=== PATIENT | female | born 1955 | race Caucasian/White ===

== ENCOUNTER 2016-05-13 23:22 | Emergency (ER) | payer OTHER, MEDICAID ==
[2016-05-13 23:28] VITALS: TEMP 97.9; O2SAT 96
--- NOTE | 2016-05-14 00:28 | EDPHY ---
H & P Stated Complaint: PAIN WITH LIFTING ARMS X2 WEEKS, PAIN TO BILAT LEGS HPI/ROS: CHIEF COMPLAINT: Difficulty lifting arms HISTORY OF PRESENT ILLNESS: patient complains of 1-2 weeks of difficulty lifting her arms. There is significant pain in the shoulder girdle. No weakness of the arms very painful to do so. Has difficulty lifting her arms above her head. No trauma or injury. No bony tenderness. No weakness of the pelvic girdle. No weakness distally. No fevers chills. No trauma or injury. Has not seen anyone yet for this. No alleviating factors this at home. Worse when attempting to abduct the shoulders. No other associated complaints or modifying factors. REVIEW OF SYSTEMS: Ten systems reviewed and are negative unless otherwise noted in the HPI EXAMINATION General Appearance: Alert, no distress Head: normocephalic, atraumatic Eyes: Pupils equal and round, no conjunctival pallor or injection ENT, Mouth: Mucous membranes moist knee. Uvula midline. No lesions. Neck: Normal inspection, supple, non-tender Respiratory: Lungs are clear to auscultation Cardiovascular: Regular rate and rhythm Gastrointestinal: Abdomen is soft and nontender Back: non-tender, no bony abnormalities Neurological: A&O, nonfocal, Steady gait. Strength is symmetric 5/5 in all limbs. Sensory intact. Skin: Warm and dry, no rash Extremities: Range of motion intact, but significant pain to the bilateral deltoids with abduction and flexion of the shoulder. No tenderness to palpation at any level below the shoulder. Range of motion of the lower extremities intact. Neurovascular intact distal to her shoulder pain with brisk cap refill in all fingers and toes Psychiatric: Mood and affect normal DIFFERENTIAL DIAGNOSES: Including but not limited to myositis, muscular strain, weakness, chronic pain , malingering MDM: Shoulder pain with no weakness. There is no pelvic girdle weakness. Laboratory studies reveal elevated CRP but no elevated CK. ESR is normal.Creatinine is normal. Electrolytes are normal. Suspect this is poly myalgia. No evidence of polymyositis. She will be given 60 mg of prednisone here and discharge home with continued steroid therapy over the next few days. She is to follow up with primary care physician for definitive care. Patient is comfortable with this and discharged home in stable condition. She has asked multiple times for pain medication And I have declined. SUPERVISION: This patient was independently evaluated without the aide of supervising physician. Source: Patient Exam Limitations: No limitations - Personal History Current Tetanus/Diphtheria Vaccine: Yes Current Tetanus Diphtheria and Acellular Pertussis (TDAP): Yes Tetanus Vaccine Date: 2012 - Medical/Surgical History Hx Asthma: No Hx Chronic Respiratory Disease: No Hx Diabetes: No Hx Cardiac Disease: No Hx Renal Disease: No Hx Cirrhosis: No Hx Alcoholism: Yes Hx HIV/AIDS: No Hx Splenectomy or Spleen Trauma: No Other PMH: medical anxiety, depression. surgery bilateral knee surgery, tubal ligation. ETOH abuse, pancreatitis, hypernatremia. PIN IN l WRIST - Social History Smoking Status: Former smoker Constitutional: Initial Vital Signs Temperature (C) 97.9 F 05/13/16 23:25 Heart Rate 106 H 05/13/16 23:25 Respiratory Rate 18 05/13/16 23:25 Blood Pressure 128/84 H 05/13/16 23:25 O2 Sat (%) 96 05/13/16 23:25 O2 Delivery Mode Room Air Allergies/Adverse Reactions: No Known Allergies Allergy (Verified 05/13/16 23:28) Home Medications: Medication Instructions Recorded Zolpidem Tartrate [Ambien 5MG (*)] 10 mg PO HS PRN 12/16/15 buPROPion SR [Wellbutrin 150mg SR 150 mg PO BID 12/16/15 (*)] Acetaminophen [Tylenol 325mg (*)] 650 mg PO Q4 PRN #0 tab 12/17/15 predniSONE 60 mg PO DAILY #12 tab 05/14/16 Medical Decision Making - Data Points Laboratory Results: Laboratory Results 05/14/16 00:45 05/14/16 00:45 05/14/16 00:45 WBC 7.63 10^3/uL (3.80-9.50) RBC 4.56 10^6/uL (4.18-5.33) Hgb 13.4 g/dL (12.6-16.3) Hct 39.9 % (38.0-47.0) MCV 87.5 fL (81.5-99.8) MCH 29.4 pg (27.9-34.1) MCHC 33.6 g/dL (32.4-36.7) RDW 13.2 % (11.5-15.2) Plt Count 412 H 10^3/uL (150-400) MPV 8.5 L fL (8.7-11.7) Neut % (Auto) 55.3 % (39.3-74.2) Lymph % (Auto) 34.7 % (15.0-45.0) [place] % (Auto) 5.1 % (4.5-13.0) Eos % (Auto) 3.7 % (0.6-7.6) Baso % (Auto) 0.8 % (0.3-1.7) Nucleat RBC Rel Count 0.0 % (0.0-0.2) Absolute Neuts (auto) 4.22 10^3/uL (1.70-6.50) Absolute Lymphs (auto) 2.65 10^3/uL (1.00-3.00) Absolute Monos (auto) 0.39 10^3/uL (0.30-0.80) Absolute Eos (auto) 0.28 10^3/uL (0.03-0.40) Absolute Basos (auto) 0.06 10^3/uL (0.02-0.10) Absolute Nucleated RBC 0.00 10^3/uL (0-0.01) Immature Gran % 0.4 % (0.0-1.1) Immature Gran # 0.03 10^3/uL (0.00-0.10) ESR 17 MM/HR (0-30) Sodium 151 H mEq/L (134-144) Potassium 4.3 mEq/L (3.5-5.2) Chloride 114 H mEq/L (97-110) Carbon Dioxide 22 mEq/l (22-31) Anion Gap 15 mEq/L (8-16) BUN 20 mg/dL (7-23) Creatinine 0.8 mg/dL (0.6-1.0) Estimated GFR > 60 Glucose 103 H mg/dL (70-100) Calcium 9.4 mg/dL (8.5-10.4) Magnesium 1.9 mg/dL (1.6-2.3) Creatine Kinase 63 IU/L (0-156) C-Reactive Protein 28.8 H mg/L (<10.0) Departure - Departure Disposition: Home, Routine, Self-Care Clinical Impression: Muscular pain, Polymyalgia Condition: Good Instructions: Polymyalgia Rheumatica (ED) Additional Instructions: Follow-up with primary care physician for further workup. Recommend discussion for autoimmune workup. Return for any new weakness of the upper extremities or worsening pain. Referrals: NONE *PRIMARY CARE P,. [Primary Care Provider] - As per Instructions [facility] [Outside] - As per Instructions Prescriptions: predniSONE 60 mg PO DAILY #12 tab
[2016-05-14 01:11] LABS: % IMMATURE GRANULYOCYTES 0.4 % (0.0-1.1); ABSOLUTE IMMATURE GRANULOCYTES 0.03 10^3/uL (0.00-0.10); ADD DIFF? NO; ADD MORPH? NO; ADD SCAN? NO; ATYPICAL LYMPHOCYTE FLAG 10 (0-99); FRAGMENT RBC FLAG 0 (0-99); HEMATOCRIT 39.9 % (38.0-47.0); HEMOGLOBIN 13.4 g/dL (12.6-16.3); LEFT SHIFT FLG 0 (0-99); LIPEMIA HEMOLYSIS FLAG 80 (0-99); MEAN CELL HEMOGLOBIN 29.4 pg (27.9-34.1); MEAN CELL HEMOGLOBIN CONCENTR. 33.6 g/dL (32.4-36.7); MEAN CELL VOLUME 87.5 fL (81.5-99.8); MEAN PLATELET VOLUME 8.5 fL (8.7-11.7); PLATELET CLUMPS FLAG 10 (0-99); PLATELET COUNT 412 10^3/uL (150-400); RED BLOOD CELL COUNT 4.56 10^6/uL (4.18-5.33); RED CELL DISTRIBUTION WIDTH 13.2 % (11.5-15.2)
[2016-05-14 01:25] LABS: SEDIMENTATION RATE 17 MM/HR (0-30)
[2016-05-14 01:29] LABS: ANION GAP 15 mEq/L (8-16); C-REACTIVE PROTEIN 28.8 mg/L (<10.0); CALCIUM 9.4 mg/dL (8.5-10.4); CARBON DIOXIDE 22 mEq/l (22-31); CHLORIDE 114 mEq/L (97-110); CREATININE 0.8 mg/dL (0.6-1.0); GLOMERULAR FILTRATION RATE > 60; GLUCOSE 103 mg/dL (70-100); MAGNESIUM 1.9 mg/dL (1.6-2.3); POTASSIUM 4.3 mEq/L (3.5-5.2); SODIUM 151 mEq/L (134-144)
[2016-05-14] MEDS ORDERED: predniSONE 20 MG TAB PO ONE (01:39)
[2016-05-14] MEDS ORDERED: predniSONE 20 MG TAB ONE (01:39)
[2016-05-14 01:50] VITALS: BP 121/86; PULSE 71; RESP 16
== END 2016-05-14 01:50 | disposition home or self-care (01) ==
DX: M79.1 Myalgia (principal); M35.3 Polymyalgia rheumatica; Z87.891 Personal history of nicotine dependence

== ENCOUNTER 2016-06-17 06:55 | Emergency (ER) | payer OTHER, MEDICAID ==
[2016-06-17 07:02] VITALS: BP 136/88; PULSE 91; RESP 16; TEMP 98.4; O2SAT 94
--- NOTE | 2016-06-17 07:13 | EDPHY ---
HPI/HX/ROS/PE/MDM Narrative: CHIEF COMPLAINT: Elbow and knee pain HPI: The patient is a 60 y/o female, well-known to this department with 9 ED visits in the last year, complaining of right knee and right elbow pain secondary to a fall this morning. She was walking to the bus stop when she slipped on the snow and landed on her right side. She says she has a history of injuries to her right knee and has an upcoming surgery scheduled. She denies striking her head or losing consciousness. No weakness, paresthesias, or other injuries. REVIEW OF SYSTEMS: Aside from elements discussed in the HPI, a comprehensive 10-point review of systems was reviewed and is negative. PMH: anxiety, depression, bilateral knee surgeries, pancreatitis SOCIAL HISTORY: alcohol abuse Prior medical records reviewed including ED visits 05/13/16 and 03/13/16. PHYSICAL EXAM: General:Patient is alert, in no acute distress. ENT:Eyes are normal to inspection. ENT inspection normal. Neck: Normal inspection. Full range of motion. Respiratory:No respiratory distress. Breath sounds normal bilaterally. Cardiovascular: Regular rate and rhythm. Strong peripheral pulses. Normal cap refill. Abdomen:The abdomen is nontender to palpation. There are no peritoneal signs. There are normal bowel sounds. Back: Normal to inspection. No tenderness to palpation. Skin: Normal color. No rash. Warm and dry. Extremities: Normal appearance. Full range of motion. Mild diffuse tenderness over right elbow and right knee. Neuro: Oriented x3. Normal motor function. Normal sensory function. ED Course: Study: Right knee x-ray Indication: pain, trauma Results: Knee x-ray was obtained. The results of the study are effusion, likely chronic. The study was read by the radiologist, Dr. Russell. I viewed the images myself on the PACS system. Study: Right elbow x-ray Indication: pain, trauma Results: Elbow x-ray was obtained. The results of the study are Negative. No acute fracture or effusion. The study was read by the radiologist, Dr. Russell. I viewed the images myself on the PACS system. MDM: This patient presents with minor extremity injuries after a slip on the ice. She has been seen numerous times in the ED for pain related issues and is asking for narcotics. She is refusing ibuprofen or tylenol. She walked out of the department after being denied narcotics, with XR reads still pending. I have low suspicion for serious trauma. I have high suspicion for narcotic- seeking behavior. General Initial Vital Signs: Initial Vital Signs Temperature (C) 36.9 C 06/17/16 06:58 Heart Rate 91 06/17/16 06:58 Respiratory Rate 16 06/17/16 06:58 Blood Pressure 136/88 H 06/17/16 06:58 O2 Sat (%) 94 06/17/16 06:58 O2 Delivery Mode Room Air Allergies/Adverse Reactions: No Known Allergies Allergy (Verified 06/17/16 07:02) Home Medications: Medication Instructions Recorded Zolpidem Tartrate [Ambien 5MG (*)] 10 mg PO HS PRN 12/16/15 buPROPion SR [Wellbutrin 150mg SR 150 mg PO BID 12/16/15 (*)] Acetaminophen [Tylenol 325mg (*)] 650 mg PO Q4 PRN #0 tab 12/17/15 Departure - Departure Disposition: Home, Routine, Self-Care Clinical Impression: Contusion of knee, right Qualifiers: Encounter type: initial encounter Qualified Code(s): S80.01XA - Contusion of right knee, initial encounter Contusion of elbow, right Qualifiers: Encounter type: initial encounter Qualified Code(s): S50.01XA - Contusion of right elbow, initial encounter Condition: Good Instructions: Contusion in Adults (ED) Additional Instructions: 1. Apply ice to sore areas. Expect to feel more sore tomorrow. 2. Use ibuprofen and Tylenol as directed on the packaging if needed for pain. 3. Follow up with your primary care provider for symptoms not improved over the next week. Referrals: Sydni Pierson DO [Primary Care Provider] - As per Instructions Report Scribed for: Torrey Bryant Report Scribed by: Tatiana Gutierres Date of Report: 06/17/16 Time of Report: 07:13 Physician Review and Approval Statement: Portions of this note were transcribed by an ED scribe. I personally performed the history, physical exam, and medical decision making; and confirm the accuracy of the information in the transcribed note.
== END 2016-06-17 08:42 | disposition home or self-care (01) ==
DX: S80.01XA Contusion of right knee, initial encounter (principal); S50.01XA Contusion of right elbow, initial encounter; W00.0XXA Fall on same level due to ice and snow, initial encounter; Y92.521 Bus station as the place of occurrence of the external cause; Y99.8 Other external cause status; Y93.01 Activity, walking, marching and hiking

== ENCOUNTER 2016-07-09 08:17 | Emergency (ER) | payer OTHER, MEDICAID ==
[2016-07-09 08:45] VITALS: BP 136/90; PULSE 88; RESP 16; TEMP 97.2; O2SAT 95
--- NOTE | 2016-07-09 09:01 | UCPHY ---
H & P Time Seen by Provider: 07/09/16 08:47 Patient Type: Established HPI/ROS: This patient presents with a chief complaint of right knee injury which occurred yesterday evening. She says that she fell directly on it but has diffuse knee pain involving the posterior aspect as well as the medial and lateral aspects. She denies any twisting component. This patient is scheduled for arthroscopic knee surgery at the end of the month. She has had multiple knee problems in the past and says that the menisci bilaterally are non-existent. Smoking Status: Former smoker Physical Exam: This is a well-developed well-nourished female who is in no acute distress. She is alert lucid. Examination of the knee reveals some mild swelling over the medial aspect of the joint. There is tenderness diffusely about the knee involving both the medial and lateral aspects as well as the anterior and posterior ones. There is no laxity of the collatera ligaments that I can detect but the patient is regarding the knee. Constitutional: Initial Vital Signs Temperature (C) 36.2 C 07/09/16 08:40 Heart Rate 88 07/09/16 08:40 Respiratory Rate 16 07/09/16 08:40 Blood Pressure 136/90 H 07/09/16 08:40 O2 Sat (%) 95 07/09/16 08:40 O2 Delivery Mode Room Air Allergies/Adverse Reactions: No Known Allergies Allergy (Verified 07/09/16 08:38) Home Medications: Medication Instructions Recorded Zolpidem Tartrate [Ambien 5MG (*)] 10 mg PO HS PRN 12/16/15 buPROPion SR [Wellbutrin 150mg SR 150 mg PO BID 12/16/15 (*)] Acetaminophen [Tylenol 325mg (*)] 650 mg PO Q4 PRN #0 tab 12/17/15 Oxycontin 07/01/16 Hydrocodone/APAP 5/325 [[place] 5 mg PO Q4-6PRN PRN #6 tab 07/09/16 5/325 (*)] Medical Decision Making ED Course/Re-evaluation: I do not feel that x-rays are indicated based on the amount of swelling present and the lack of any other objective findings especially given that she is scheduled for arthroscopy in the near future. Differential Diagnosis: Mechanism of this injury makes me think that contusion is the most likely diagnosis. There is no evidence of a significant ligamentous injury or fracture. Departure - Departure Disposition: Home, Routine, Self-Care Clinical Impression: Knee injury Qualifiers: Encounter type: initial encounter Laterality: right Qualified Code(s): S89.91XA - Unspecified injury of right lower leg, initial encounter Condition: Good Instructions: Swollen Knee Joint (ED) Additional Instructions: Keep your appointment for your arthroscopic surgery as previously scheduled. Limit your activity based on the amount of pain you're having. Apply ice to the area of injury for 20 minutes every 2 hours for 3 days following your injury. After 3 days (72 hours) it is safe to apply heat frequently throughout the day and I would recommend you're doing so. However if ice feels better it is okay to do this. Elevate the area of the injury as much as possible for the next 2 or 3 days or longer if you have a serious injury. If you have been told that it is safe to use the injured extremity do so in a limited fashion for the first 2-3 days. Afterwards left pain be your guide. Adult Pain & Fever Control: We recommend Acetaminophen (Tylenol) and Ibuprofen (Motrin, Advil) for pain and fever control. When fever is high or pain severe, both drugs can be used at the same time, but at different intervals. Please note the time differences. Your dose is: Acetaminophen [650]mg every 4 to 6 hours ibuprofen [600]mg every [6] hours with food OR naproxen Sodium (Aleve) [440]mg every 12 hours. Note: do not take Acetaminophen with Hydrocodone (Vicodin, Lortab) or Oxycodone (Percocet). These medications also contain Acetaminophen. No more than 3000 mg of Acetaminophen should be taken in 24 hours (for an adult) . The maximal dose of ibuprofen that it is safe in a 24-hour period is 2400 mg. You may take 400 mg every 4 hours, 600 mg every 6 hours or 800 mg every 8 hours safely. Prescriptions: Hydrocodone/APAP 5/325 [[place] 5/325 (*)] 5 mg PO Q4-6PRN PRN #6 tab PRN Reason: pain - PQRS PQRS Measurement: Not applicable
== END 2016-07-09 09:10 | disposition home or self-care (01) ==
LOC: CED 08:17
DX: S89.91XA Unspecified injury of right lower leg, initial encounter (principal); M25.461 Effusion, right knee; W19.XXXA Unspecified fall, initial encounter
CPT/HCPCS: 99213-PO; G0463-PO

== ENCOUNTER 2016-08-13 19:32 | Emergency (ER) | payer OTHER, MEDICAID ==
[2016-08-13] MEDS ORDERED: LORazepam 1 MG TAB PO ONE ×2 (19:39→21:03)
[2016-08-13 19:55] VITALS: RESP 16; TEMP 97.9
[2016-08-13] MEDS ORDERED: LORazepam 1 MG TAB ONE (20:53)
--- NOTE | 2016-08-13 21:09 | EDPHY ---
H & P Stated Complaint: ETOH, found down, unable to ambulate, combative during transport HPI/ROS: Chief complaint: Alcohol intoxication History of present illness: 60-year-old female brought to the emergency department by EMS for suspected alcohol intoxication. Patient was found passed outside a restaurant. EMS was called and she was transported to the hospital. My evaluation patient is uncooperative. She does admit to drinking alcohol. She will not answer further questions. Review of systems: Unable to obtain as patient is not cooperative - Personal History Current Tetanus/Diphtheria Vaccine: Unsure Current Tetanus Diphtheria and Acellular Pertussis (TDAP): Unsure Tetanus Vaccine Date: 2012 - Medical/Surgical History Hx Asthma: No Hx Chronic Respiratory Disease: No Hx Diabetes: No Hx Cardiac Disease: No Hx Renal Disease: No Hx Cirrhosis: No Hx Alcoholism: Yes Hx HIV/AIDS: No Hx Splenectomy or Spleen Trauma: No Other PMH: [facility] [place]. Fibromyalgia, depression, Chronic pain, Tubal ligation, alcoholism - Social History Smoking Status: Former smoker - Physical Exam Exam: General Appearance: Alert, nontoxic, odor of alcohol on breath Eyes: PERRLA ENT: No hemotympanum, no eubanks sign, no raccoon eyes Respiratory: Lungs clear to auscultation bilaterally Cardiac: Regular rate and rhythm. Gastrointestinal: Bowel sounds normal. Abdomen is soft, nondistended, no apparent tenderness. Neurological: Alert. Moving around without difficulty. Skin: Head-to-toe examination does not reveal lesions consistent with trauma Musculoskeletal: Head is normocephalic, atraumatic. No apparent tenderness on palpation of the spine. No crepitus, bony deformity or step-off. Chest wall intact palpation. Patient moving all extremities without difficulty. Ambulating without difficulty. Constitutional: Initial Vital Signs Temperature (C) 36.6 C 08/13/16 19:35 Heart Rate 82 08/13/16 19:35 Respiratory Rate 16 08/13/16 19:35 Blood Pressure 185/102 H 08/13/16 19:35 O2 Sat (%) 92 08/13/16 19:35 O2 Delivery Mode Room Air Allergies/Adverse Reactions: No Known Allergies Allergy (Verified 07/09/16 08:38) Home Medications: Medication Instructions Recorded Zolpidem Tartrate [Ambien 5MG (*)] 10 mg PO HS PRN 12/16/15 buPROPion SR [Wellbutrin 150mg SR 150 mg PO BID 12/16/15 (*)] Acetaminophen [Tylenol 325mg (*)] 650 mg PO Q4 PRN #0 tab 12/17/15 Oxycontin 07/01/16 Hydrocodone/APAP 5/325 [[place] 5 mg PO Q4-6PRN PRN #6 tab 07/09/16 5/325 (*)] Medical Decision Making ED Course/Re-evaluation: Patient seen under the supervision of my primary supervising physician Dr. Kassandra Odonnell. Patient presents to the emergency department after being essentially found passed out. On presentation patient is nontoxic. Vital signs are stable. There is a strong odor of alcohol on her breath. Physical exam is benign. Police have placed her on an [facility] cold. She is discharged to the [facility] after a period of observation without further problems in the emergency room. Differential Diagnosis: Included but not limited to alcohol intoxication, polysubstance abuse, psychiatric disorders - Data Points Medications Given: Discontinued Medications Lorazepam (Ativan) 1 mg PO EDNOW ONE Stop: 08/13/16 19:40 Last Admin: 08/13/16 19:45 Dose: 1 mg Lorazepam (Ativan) 1 mg PO EDNOW ONE Stop: 08/13/16 21:04 Last Admin: 08/13/16 21:03 Dose: 1 mg Departure - Departure Disposition: Home, Routine, Self-Care Clinical Impression: Alcoholic intoxication Qualifiers: Complication of substance-induced condition: uncomplicated Qualified Code(s): F10.120 - Alcohol abuse with intoxication, uncomplicated Condition: Good Instructions: Alcohol Intoxication (ED) Additional Instructions: Follow up with a primary care doctor for recheck If symptoms worsen or new symptoms develop return to the emergency department Referrals: [facility] [Outside] - As per Instructions [facility] [Outside] - As per Instructions Patient,NotPresent [Primary Care Provider] - As per Instructions
[2016-08-13 22:13] VITALS: BP 151/84; PULSE 81; O2SAT 95
== END 2016-08-13 22:00 | disposition home or self-care (01) ==
LOC: EDUNIT#
DX: F10.120 Alcohol abuse with intoxication, uncomplicated (principal); Z87.891 Personal history of nicotine dependence

== ENCOUNTER 2016-09-04 02:05 | Emergency (ER) | payer MEDICAID, OTHER ==
--- NOTE | 2016-09-04 02:11 | EDPHY ---
H & P HPI/ROS: HPI CHIEF COMPLAINT: Alcohol intoxication with head strike HISTORY OF PRESENT ILLNESS: This patient very pleasant 52-year-old female she has significant past medical history for alcoholism, fibromyalgia, depression, chronic pain presents emergency room by EMS with police escort after the make contact with her in the [facility] lot where she was found without any pants on. She had to climb up on a tractor trailer base of it fell backwards off with head strike. No LOC. This was witnessed by police. Patient is intoxicated with alcohol. She tells me she drank vodka this evening. Upon arrival here she is alert and oriented GCS 15 she does have slight slur her speech and smells of alcohol. She does admit to being intoxicated. Past Medical History: Chronic pain, depression, fibromyalgia, alcoholism Past Surgical History: Tubal ligation Social History: Daily alcohol use, denies tobacco or illicit drugs, lives locally in [place] Family History: Noncontributory ROS REVIEW OF SYSTEMS: A comprehensive 10 point review of systems is otherwise negative aside from elements mentioned in the history of present illness. Exam Constitutional intoxicated alcohol, pleasant, triage nursing summary reviewed, vital signs reviewed, awake/alert. Eyes normal conjunctivae and sclera, EOMI, PERRLA. HENT normal inspection, atraumatic, moist mucus membranes, no epistaxis, neck supple/ no meningismus, no raccoon eyes. Respiratory clear to auscultation bilaterally, normal breath sounds, no respiratory distress, no wheezing. Cardiovascular rate normal, regular rhythm, no murmur, no edema, distal pulses normal. Gastrointestinal soft, non-tender, no rebound, no guarding, normal bowel sounds, no distension, no pulsatile mass. Genitourinary no CVA tenderness. Musculoskeletal no midline vertebral tenderness, full range of motion, no calf swelling, no tenderness of extremities, no meningismus, good pulses, neurovascularly intact. Skin pink, warm, & dry, no rash, skin atraumatic. Neurologic awake, alert and oriented x 3, AAOx3, moves all 4 extremities equally, motor intact, sensory intact, CN II-XII intact, normal cerebellar, normal vision, slurring of the speech Psychiatric normal mood/affect. Heme/Lymph/Immune no lymphadenopathy. Differential Diagnosis: Includes but is not limited to in a particular order acute alcohol intoxication, closed head injury, subdural hemorrhage, epidural hemorrhage, traumatic subarachnoid Medical Decision Making: Plan for this patient breath alcohol and CT head without contrast for trauma given head strike against the pavement while intoxicated alcohol after climbing up on [address]. Fell approximately 2-3 feet. Re-evaluation: CT scan of the head without IV contrast The results of the study are negative for acute traumatic injury. The study was read by Dr. Franco. I viewed the images myself on the PACS system. [id number]: Patient is now clinically sober but still smells of alcohol. Stable gait. No ataxia. We have provided pain meds for her as she did not have any pants. She is on are cold to be dispositioned to the [facility] with police. Head scan was unremarkable for trauma. Final diagnosis acute alcohol intoxication. Source: Patient, Police, EMS - Personal History Tetanus Vaccine Date: 2012 - Medical/Surgical History Hx Asthma: No Hx Chronic Respiratory Disease: No Hx Diabetes: No Hx Cardiac Disease: No Hx Renal Disease: No Hx Cirrhosis: No Hx Alcoholism: Yes Hx HIV/AIDS: No Hx Splenectomy or Spleen Trauma: No Other PMH: P[facility]. Fibromyalgia, depression, Chronic pain, Tubal ligation, alcoholism - Social History Smoking Status: Former smoker Constitutional: Initial Vital Signs Temperature (C) 36.6 C 09/04/16 02:17 Heart Rate 98 09/04/16 02:17 Respiratory Rate 20 09/04/16 02:17 Blood Pressure 169/112 H 09/04/16 02:17 O2 Sat (%) 96 09/04/16 02:17 O2 Delivery Mode Room Air Allergies/Adverse Reactions: No Known Allergies Allergy (Verified 07/09/16 08:38) Home Medications: Medication Instructions Recorded Zolpidem Tartrate [Ambien 5MG (*)] 10 mg PO HS PRN 12/16/15 buPROPion SR [Wellbutrin 150mg SR 150 mg PO BID 12/16/15 (*)] Acetaminophen [Tylenol 325mg (*)] 650 mg PO Q4 PRN #0 tab 12/17/15 Oxycontin 07/01/16 Hydrocodone/APAP 5/325 [[place] 5 mg PO Q4-6PRN PRN #6 tab 07/09/16 5/325 (*)] Departure - Departure Disposition: Home, Routine, Self-Care Clinical Impression: Alcohol intoxication Qualifiers: Complication of substance-induced condition: uncomplicated Qualified Code(s): F10.120 - Alcohol abuse with intoxication, uncomplicated Condition: Good Instructions: Alcohol Intoxication (ED) Referrals: Patient,NotPresent [Primary Care Provider] - As per Instructions
[2016-09-04 02:20] VITALS: TEMP 97.9; O2SAT 96
[2016-09-04] MEDS ORDERED: CHLORDIAZEPOXIDE 25MG PREPK#6 BTL TAKEHOME ONE ×2 (02:57→02:58)
[2016-09-04 03:02] VITALS: BP 168/90; PULSE 88; RESP 22
== END 2016-09-04 03:02 | disposition home or self-care (01) ==
LOC: EDUNIT#
DX: F10.120 Alcohol abuse with intoxication, uncomplicated (principal); Z87.891 Personal history of nicotine dependence

== ENCOUNTER 2016-10-25 21:09 | Emergency (ER) | payer MEDICAID ==
[2016-10-25 21:20] VITALS: RESP 16; TEMP 97.9
[2016-10-25 21:22] LABS: % IMMATURE GRANULYOCYTES 0.3 % (0.0-1.1); ABSOLUTE IMMATURE GRANULOCYTES 0.02 10^3/uL (0.00-0.10); ADD DIFF? NO; ADD MORPH? NO; ADD SCAN? NO; ATYPICAL LYMPHOCYTE FLAG 20 (0-99); FRAGMENT RBC FLAG 0 (0-99); HEMATOCRIT 40.9 % (38.0-47.0); HEMOGLOBIN 13.3 g/dL (12.6-16.3); LEFT SHIFT FLG 0 (0-99); LIPEMIA HEMOLYSIS FLAG 80 (0-99); MEAN CELL HEMOGLOBIN CONCENTR. 32.5 g/dL (32.4-36.7); MEAN CELL VOLUME 89.3 fL (81.5-99.8); MEAN PLATELET VOLUME 9.3 fL (8.7-11.7); PLATELET CLUMPS FLAG 10 (0-99); PLATELET COUNT 301 10^3/uL (150-400); RED BLOOD CELL COUNT 4.58 10^6/uL (4.18-5.33); RED CELL DISTRIBUTION WIDTH 14.1 % (11.5-15.2)
--- NOTE | 2016-10-25 21:32 | CPEKG ---
Heart Rate: 94 RR Interval: 638 P-R Interval: 176 QRSD Interval: 108 QT Interval: 392 QTC Interval: 491 P [place]: 65 QRS [place]: 46 T Wave [place]: 19 EKG Severity - BORDERLINE ECG - EKG Impression: SINUS RHYTHM EKG Impression: BORDERLINE PROLONGED QT INTERVAL Electronically Signed By: Cleopatra Vergara 26-Oct-2016 00:40:39
[2016-10-25 21:46] LABS: ANION GAP 18 mEq/L (8-16); CALCIUM 9.5 mg/dL (8.5-10.4); CARBON DIOXIDE 18 mEq/l (22-31); CHLORIDE 114 mEq/L (97-110); CREATININE 0.9 mg/dL (0.6-1.0); GLOMERULAR FILTRATION RATE > 60; GLUCOSE 93 mg/dL (70-100); POTASSIUM 3.5 mEq/L (3.5-5.2); SODIUM 150 mEq/L (134-144)
[2016-10-25 22:08] LABS: ETHANOL SERUM 328 mg/dL (0-10)
--- NOTE | 2016-10-25 22:27 | EDPHY ---
H & P Stated Complaint: syncope vs sz, found down ams - Personal History Current Tetanus Diphtheria and Acellular Pertussis (TDAP): Yes Tetanus Vaccine Date: 2012 - Medical/Surgical History Hx Asthma: No Hx Chronic Respiratory Disease: No Hx Diabetes: No Hx Cardiac Disease: No Hx Renal Disease: No Hx Cirrhosis: No Hx Alcoholism: Yes Hx HIV/AIDS: No Hx Splenectomy or Spleen Trauma: No Other PMH: USHA Urban. Fibromyalgia, depression, Chronic pain, Tubal ligation, alcoholism - Social History Smoking Status: Former smoker HPI/ROS: Chief complaint: Found down History of present illness: 61-year-old female brought to the emergency department by EMS after being found laying in a driveway. Patient has been mostly nonverbal with EMS, occasionally answering questions. She does admit to drinking alcohol. No stated complaints. On my evaluation patient states she feels fine. She states she has no complaints. She will not further elaborate on events of this evening. Review of systems: Patient will not answer further questions. (Cruz Brooks) - Physical Exam Exam: General Appearance: Alert, nontoxic Eyes: PERRLA ENT: No hemotympanum, no eubanks sign, no raccoon eyes Respiratory: Lungs clear to auscultation bilaterally Cardiac: Regular rate and rhythm. Gastrointestinal: Bowel sounds normal. Abdomen is soft, nondistended, nontender. Neurological: Alert. Cranial nerves 2-12 grossly intact. Strength and sensation intact and symmetrical. Patient ambulating on her own. Skin: A head-to-toe examination does not reveal lesions consistent with acute trauma. Musculoskeletal: No apparent tenderness on palpation of the head, no crepitus or bony deformity. No apparent tenderness on palpation of the spine without crepitus or bony deformity. Chest wall is intact palpation without crepitus or subcutaneous air. Patient moving all extremities without difficulty. (Cruz Brooks) Constitutional: Initial Vital Signs Temperature (C) 36.6 C 10/25/16 21:09 Heart Rate 97 10/25/16 21:09 Respiratory Rate 16 10/25/16 21:09 Blood Pressure 123/96 H 10/25/16 21:09 O2 Sat (%) 93 10/25/16 21:09 O2 Delivery Mode Room Air Allergies/Adverse Reactions: No Known Allergies Allergy (Verified 07/09/16 08:38) Home Medications: Medication Instructions Recorded Zolpidem Tartrate [Ambien 5MG (*)] 10 mg PO HS PRN 12/16/15 buPROPion SR [Wellbutrin 150mg SR 150 mg PO BID 12/16/15 (*)] Acetaminophen [Tylenol 325mg (*)] 650 mg PO Q4 PRN #0 tab 12/17/15 Oxycontin 07/01/16 Hydrocodone/APAP 5/325 [[place] 5 mg PO Q4-6PRN PRN #6 tab 07/09/16 5/325 (*)] Medical Decision Making - Diagnostics Imaging Results: Imaging Impressions Cervical Spine CT 10/25/16 21:12 Impression: Normal. CT cervical spine without contrast. History: Trauma. Pain. Fall. Technique: 1.5 mm helical images were obtained the cervical spine without contrast. Multiplanar reformation was performed. Radiation dose reduction technique was utilized. Findings: No evidence for acute fracture or subluxation. No evidence for prevertebral soft tissue swelling. Multilevel degenerative changes seen in the cervical spine. Levels of more severe neural foraminal encroachment or on the right at C5-C6 and C6-C7. Impression: No evidence for acute fracture. Multilevel degenerative disk and degenerative joint disease cervical spine more severe at C5-C6 and C6-C7. Results called and discussed with BEE Hilario at 10/25/2016 22:08. Head CT 10/25/16 21:12 Impression: Normal. CT cervical spine without contrast. History: Trauma. Pain. Fall. Technique: 1.5 mm helical images were obtained the cervical spine without contrast. Multiplanar reformation was performed. Radiation dose reduction technique was utilized. Findings: No evidence for acute fracture or subluxation. No evidence for prevertebral soft tissue swelling. Multilevel degenerative changes seen in the cervical spine. Levels of more severe neural foraminal encroachment or on the right at C5-C6 and C6-C7. Impression: No evidence for acute fracture. Multilevel degenerative disk and degenerative joint disease cervical spine more severe at C5-C6 and C6-C7. Results called and discussed with BEE Hilario at 10/25/2016 22:08. ED Course/Re-evaluation: Patient seen in conjunction with my secondary supervising physician Dr. Cleopatra Vergara. Patient is brought to the emergency department by EMS after being found down. On my evaluation she will converse with me a little. She states she feels fine. She has become quite belligerent while in the emergency room wanting to leave. She is ambulating on her own. Baseline blood studies show her to be significantly intoxicated. CT scan of the head and neck negative. EKG reviewed by Dr. Vergara. Of note she had a positive test with a tracley elevated quantitative HCG. She is postmenopausal. It is not clear as to the cause of this finding. We have discussed the importance of following up with a primary care doctor or OBGYN to further evaluate this finding. Further written instructions have been provided. Further we will leave a note with case management to contact her tomorrow hopefully when she is sober to further discuss this finding and the importance of following up on it. Return precautions are given. (Cruz Brooks) Differential Diagnosis: Included but not limited to alcohol intoxication, polysubstance abuse, hypovolemic state, infectious pathology, seizure activity, intracranial injury, spinal cord injury (Cruz Brooks) Other Provider: The patient was evaluated and managed by the Physician Monorail Hooker/ Nurse Practitioner. [I discussed the patient's presentation and course with the midlevel provider with them and agree with the evaluation.] My co-signature indicates that I have reviewed this chart and I agree with the findings and plan of care as documented. I am the secondary supervising physician. I did have a discussion with the patient regarding the abnormal lab test of a positive test. She has a beta qualitative HCG of 7.9. She tells me that she has not had a period for 5 years and that she has not been sexually active for 2 years. I did inform the patient of the abnormal beta HCG which was rechecked twice. She understands the importance that she needs to follow up. We have also asked case management to become involved in her care. Personal at the [facility] was also made aware of her need for follow-up. Patient was noted to be dehydrated with the elevated sodium and chloride. She was drinking water while in the emergency department. (Cleopatra Vergara) - Data Points Laboratory Results: Laboratory Results 10/25/16 21:14 10/25/16 21:14 10/25/16 10/25/16 10/25/16 21:14 21:14 21:14 WBC RBC Hgb Hct MCV MCH MCHC RDW Plt Count MPV Neut % (Auto) Lymph % (Auto) [place] % (Auto) Eos % (Auto) Baso % (Auto) Nucleat RBC Rel Count Absolute Neuts (auto) Absolute Lymphs (auto) Absolute Monos (auto) Absolute Eos (auto) Absolute Basos (auto) Absolute Nucleated RBC Immature Gran % Immature Gran # Sodium 150 mEq/L H mEq/L (134-144) Potassium 3.5 mEq/L mEq/L (3.5-5.2) Chloride 114 mEq/L H mEq/L (97-110) Carbon Dioxide 18 mEq/l L mEq/l (22-31) Anion Gap 18 mEq/L H mEq/L (8-16) BUN 23 mg/dL mg/dL (7-23) Creatinine 0.9 mg/dL mg/dL (0.6-1.0) Estimated GFR > 60 Glucose 93 mg/dL mg/dL (70-100) Calcium 9.5 mg/dL mg/dL (8.5-10.4) Beta HCG, Qual POSITIVE Beta HCG, Quant 7.91 mIU/mL H mIU/mL (0-4.83) Ethyl Alcohol 328 mg/dL H mg/dL (0-10) 10/25/16 21:14 WBC 5.73 10^3/uL 10^3/uL (3.80-9.50) RBC 4.58 10^6/uL 10^6/uL (4.18-5.33) Hgb 13.3 g/dL g/dL (12.6-16.3) Hct 40.9 % % (38.0-47.0) MCV 89.3 fL fL (81.5-99.8) MCH 29.0 pg pg (27.9-34.1) MCHC 32.5 g/dL g/dL (32.4-36.7) RDW 14.1 % % (11.5-15.2) Plt Count 301 10^3/uL 10^3/uL (150-400) MPV 9.3 fL fL (8.7-11.7) Neut % (Auto) 61.7 % % (39.3-74.2) Lymph % (Auto) 30.0 % % (15.0-45.0) [place] % (Auto) 4.5 % % (4.5-13.0) Eos % (Auto) 2.6 % % (0.6-7.6) Baso % (Auto) 0.9 % % (0.3-1.7) Nucleat RBC Rel Count 0.0 % % (0.0-0.2) Absolute Neuts (auto) 3.53 10^3/uL 10^3/uL (1.70-6.50) Absolute Lymphs (auto) 1.72 10^3/uL 10^3/uL (1.00-3.00) Absolute Monos (auto) 0.26 10^3/uL L 10^3/uL (0.30-0.80) Absolute Eos (auto) 0.15 10^3/uL 10^3/uL (0.03-0.40) Absolute Basos (auto) 0.05 10^3/uL 10^3/uL (0.02-0.10) Absolute Nucleated RBC 0.00 10^3/uL 10^3/uL (0-0.01) Immature Gran % 0.3 % % (0.0-1.1) Immature Gran # 0.02 10^3/uL 10^3/uL (0.00-0.10) Sodium Potassium Chloride Carbon Dioxide Anion Gap BUN Creatinine Estimated GFR Glucose Calcium Beta HCG, Qual Beta HCG, Quant Ethyl Alcohol Departure - Departure Disposition: Home, Routine, Self-Care Clinical Impression: Dehydration Alcoholic intoxication Qualifiers: Complication of substance-induced condition: uncomplicated Qualified Code(s): F10.920 - Alcohol use, unspecified with intoxication, uncomplicated Condition: Good Instructions: Alcohol Intoxication (ED) Additional Instructions: Please follow-up with a primary care doctor for recheck You had a positive test today however your quantitative HCG was 7, it is not clear as to the meaning of this, you must follow up with a primary care doctor or OBGYN for recheck of this finding, this could be potentially serious such as the development of cancer. If symptoms worsen or new symptoms develop return to the emergency room for recheck Referrals: NONE *PRIMARY CARE P,. [Primary Care Provider] - As per Instructions [facility],. [Clinic] - As per Instructions Nneka Cruz MD [Medical Doctor] - As per Instructions
[2016-10-25 22:58] VITALS: BP 120/92; PULSE 89; O2SAT 96
== END 2016-10-25 22:58 | disposition home or self-care (01) ==
LOC: EDUNIT#
DX: F10.120 Alcohol abuse with intoxication, uncomplicated (principal); E86.0 Dehydration; Z87.891 Personal history of nicotine dependence
CPT/HCPCS: G0480

== ENCOUNTER 2017-01-21 16:48 | Emergency (ER) | payer MEDICAID ==
--- NOTE | 2017-01-21 17:14 | EDPHY ---
H & P Source: Patient, Police - Personal History Tetanus Vaccine Date: 2012 - Medical/Surgical History Hx Asthma: No Hx Chronic Respiratory Disease: No Hx Diabetes: No Hx Cardiac Disease: No Hx Renal Disease: No Hx Cirrhosis: No Hx Alcoholism: Yes Hx HIV/AIDS: No Hx Splenectomy or Spleen Trauma: No Other PMH: USHA Urban. Fibromyalgia, depression, Chronic pain, Tubal ligation, alcoholism - Social History Smoking Status: Former smoker Time Seen by Provider: 01/21/17 17:13 HPI/ROS: HPI: This is a 61-year-old female who presents with Chief Complaint: Alcohol intoxication Location: Quality: Alcohol intoxication Duration: Prior to arrival Signs and Symptoms:+ hearing voices, + disoriented, + uncooperative Timing: Acute on chronic Severity: Moderate Context: Patient brought in via EMS on M1 by [employer] as she was found intoxicated which she admits to drinking "large amounts of alcohol" but will not answer any further questions regarding amount and use. She is belligerent and uncooperative. Please state that she was screaming, talking to voices and people that were not present, disoriented, confused. She did not know the date or situational contacts that she was in. Her thought process was tangential and illogical. She keeps stating that she wants to go home, called me a "perfect bitch." Chart reviews that shows that she has multiple emergency room visits for combativeness and alcohol intoxication. She denies suicidal ideation and homicidal ideation to me. Modifying Factors: Comment: ROS:Very difficult to obtain secondary to patient's uncooperativeness and alcohol intoxicated condition Constitutional: No fever, no chills, no weight loss Eyes: No blurred vision Respiratory: No shortness of breath, no cough Cardiovascular: No chest pain Gastrointestinal: No nausea, no vomiting no diarrhea Genitourinary: No dysuria Extremities: No myalgias Neurologic: No weakness, no numbness Skin: No rashes Hematologic: No bruising, no bleeding MEDICAL/SURGICAL/SOCIAL HISTORY: Very difficult to obtain secondary to patient's uncooperativeness and alcohol intoxicated condition CONSTITUTIONAL: Intoxicated, uncooperative untidy, adult white female, yelling and screaming, awake and alert, no obvious distress HEENT: Atraumatic and normocephalic, PERRL, EOMI. Tympanic membranes clear. Oropharynx clear, no exudate and moist pink mucosa. Airway patent. No lymphadenopathy. No meningismus. Cardiovascular: Normal S1/S2, regular rate, regular rhythm, without murmur rub or gallop. PULMONARY/CHEST: Symmetrical and nontender. Clear to auscultation bilaterally. Good air movement. No accessory muscle usage. ABDOMEN: Soft, nondistended, nontender, no rebound, no guarding, no peritoneal signs, no masses or organomegaly. No CVAT. EXTREMITIES: 2/2 pulses, no deformities, no clubbing, no cyanosis or edema. NEUROLOGICAL: no focal neuro deficits. GCS 15. PSYCH: Very uncooperative, consulting, illogical tangential thought process, alternates between dramatic and shouting, + auditory hallucinations. No homicidal ideation. No suicidal ideation. SKIN: Warm and dry, no erythema. no rash. Good capillary refill. (Anna Malave) Constitutional: Initial Vital Signs Heart Rate 90 01/21/17 17:15 Respiratory Rate 16 01/21/17 17:15 Blood Pressure 172/111 H 01/21/17 17:15 O2 Sat (%) 95 01/21/17 17:15 O2 Delivery Mode Room Air Allergies/Adverse Reactions: No Known Allergies Allergy (Verified 07/09/16 08:38) Home Medications: Medication Instructions Recorded Zolpidem Tartrate [Ambien 5MG (*)] 10 mg PO HS PRN 12/16/15 buPROPion SR [Wellbutrin 150mg SR 150 mg PO BID 12/16/15 (*)] Acetaminophen [Tylenol 325mg (*)] 650 mg PO Q4 PRN #0 tab 12/17/15 Oxycontin 07/01/16 Hydrocodone/APAP 5/325 [[place] 5 mg PO Q4-6PRN PRN #6 tab 07/09/16 5/325 (*)] Medical Decision Making ED Course/Re-evaluation: 1650: M1 hold by [employer] 1701: ETOH 333 1745: Labs including quant and qualitative serum HCG ordered due to last time have an elevated number without clear reason. Patient did not follow up with OBGYN as recommended at that time. She is uncooperative, agitated and clearly intoxicated. P.o. Ativan 1 mg given. She is currently on M1 hold from [employer]. Will re-evaluate patient once she becomes more sober and repeat physical exam to determine if she is psychotic, suicidal or homicidal to support the hold. She may just have alcohol intoxication with delirium at this time. 1800: Serum HCG quantitative is negative. Nursing advised that patient was yelling and screaming and uncooperative. She presented danger to herself and to staff. Given IM Haldol 5 mg and IM Ativan 2 mg. 1835: Labs reviewed and Medically clear 0230: End of shift signed over to Dr. Gibson. No further interventions have been required for the last several hours. Suspect once patient is sober will no longer be hearing voices as I believe she is suffering from delirium secondary to alcohol intoxication. (Anna Malave) Differential Diagnosis: Altered mental status including but not limited to hypoglycemia, infectious process, electrolyte abnormality, head injury and intoxicants. (Anna Malave) Other Provider: 0200 care assumed by me from BEE Malave pending metabolism or alcohol re- evaluation. 0615 patient is now sober. She is awake alert. She says that she was nearly intoxicated last night. She is not suicidal or homicidal at this time. She is dionne for safety. She has ambulated unassisted to the bathroom. She is medically cleared for discharge. Mental health hold has been vacated by me. ( Charlie Gibson) - Data Points Laboratory Results: Laboratory Results 01/21/17 17:05 01/21/17 17:05 Medications Given: Discontinued Medications Haloperidol Lactate (Haldol Injection) 5 mg IM EDNOW ONE Stop: 01/21/17 18:15 Last Admin: 01/21/17 18:15 Dose: 5 mg Lorazepam (Ativan) 1 mg PO EDNOW ONE Stop: 01/21/17 17:38 Last Admin: 01/21/17 17:49 Dose: 1 mg Lorazepam (Ativan Injection) 2 mg IM EDNOW ONE Stop: 01/21/17 18:15 Last Admin: 01/21/17 18:16 Dose: 2 mg Departure - Departure Disposition: Home, Routine, Self-Care Clinical Impression: Alcohol intoxication Qualifiers: Complication of substance-induced condition: with delirium Qualified Code(s): F10.921 - Alcohol use, unspecified with intoxication delirium Condition: Good Instructions: Alcohol Intoxication (ED) Additional Instructions: Follow up with primary care physician in 3-4 days for fevers, chills, nausea, vomiting, chest pain, or any other concerns. Please try to avoid binge drinking alcohol. Referrals: Patient,NotPresent [Primary Care Provider] - As per Instructions
[2017-01-21 17:19] LABS: % IMMATURE GRANULYOCYTES 0.2 % (0.0-1.1); ABSOLUTE IMMATURE GRANULOCYTES 0.01 10^3/uL (0.00-0.10); ADD DIFF? NO; ADD MORPH? NO; ADD SCAN? NO; ATYPICAL LYMPHOCYTE FLAG 20 (0-99); FRAGMENT RBC FLAG 0 (0-99); HEMATOCRIT 44.8 % (38.0-47.0); HEMOGLOBIN 14.7 g/dL (12.6-16.3); LEFT SHIFT FLG 0 (0-99); LIPEMIA HEMOLYSIS FLAG 80 (0-99); MEAN CELL HEMOGLOBIN 29.6 pg (27.9-34.1); MEAN CELL HEMOGLOBIN CONCENTR. 32.8 g/dL (32.4-36.7); MEAN CELL VOLUME 90.3 fL (81.5-99.8); MEAN PLATELET VOLUME 9.1 fL (8.7-11.7); PLATELET CLUMPS FLAG 0 (0-99); PLATELET COUNT 319 10^3/uL (150-400); RED BLOOD CELL COUNT 4.96 10^6/uL (4.18-5.33); RED CELL DISTRIBUTION WIDTH 14.2 % (11.5-15.2)
[2017-01-21 17:27] VITALS: RESP 16
[2017-01-21 17:33] LABS: ANION GAP 16 mEq/L (8-16); CALCIUM 9.7 mg/dL (8.5-10.4); CARBON DIOXIDE 23 mEq/l (22-31); CHLORIDE 115 mEq/L (97-110); GLOMERULAR FILTRATION RATE 57; GLUCOSE 89 mg/dL (70-100); POTASSIUM 4.1 mEq/L (3.5-5.2); SALICYLATE < 1.0 mg/dL (2.0-20.0); SODIUM 154 mEq/L (134-144)
[2017-01-21] MEDS ORDERED: LORazepam 1 MG TAB PO ONE (17:37)
[2017-01-21 17:46] LABS: ETHANOL SERUM 333 mg/dL (0-10)
[2017-01-21] MEDS ORDERED: HALOPERIDOL LACT 5 MG/ML INJ IM ONE (18:14)
[2017-01-21] MEDS ORDERED: LORazepam 2 MG/ML INJ IM ONE (18:14)
[2017-01-22 06:49] VITALS: BP 168/102; PULSE 72; TEMP 97.9; O2SAT 96
== END 2017-01-22 06:49 | disposition home or self-care (01) ==
LOC: EDUNIT#
DX: F10.921 Alcohol use, unspecified with intoxication delirium (principal); Z87.891 Personal history of nicotine dependence
CPT/HCPCS: 80305; G0480

== ENCOUNTER 2017-03-23 11:34 | Emergency (ER) | payer MEDICAID ==
--- NOTE | 2017-03-23 11:45 | EDPHY ---
H & P Time Seen by Provider: 03/23/17 11:42 HPI/ROS: CHIEF COMPLAINT: Left knee pain after mechanical fall HISTORY OF PRESENT ILLNESS: The patient presents to the ED with complaints of left knee pain after mechanical fall. She reportedly slipped on water. The patient does have a history of alcohol abuse. She does admit to drinking alcohol today. The patient did not strike her head or lose consciousness. She was brought in by paramedics with complaints of severe left knee pain. She denies any associated numbness or weakness. She denies additional traumatic injury. She pain is worsened with any attempted movement of the left knee. REVIEW OF SYSTEMS: A comprehensive 10 point review of systems is otherwise negative aside from elements mentioned in the history of present illness. Source: Patient Exam Limitations: No limitations - Personal History Tetanus Vaccine Date: 2012 - Medical/Surgical History Hx Asthma: No Hx Chronic Respiratory Disease: No Hx Diabetes: No Hx Cardiac Disease: No Hx Renal Disease: No Hx Cirrhosis: No Hx Alcoholism: Yes Hx HIV/AIDS: No Hx Splenectomy or Spleen Trauma: No Other PMH: USHA Urban. Fibromyalgia, depression, Chronic pain, Tubal ligation, alcoholism - Social History Smoking Status: Former smoker - Physical Exam Exam: General Appearance: Alert, no distress Eyes: Pupils equal and round no pallor or injection ENT, Mouth: Mucous membranes moist Respiratory: There are no retractions, lungs are clear to auscultation Cardiovascular: Regular rate and rhythm Gastrointestinal: Abdomen is soft and nontender, no masses, bowel sounds normal Neurological: A&O, normal motor function, normal sensory exam, normal cranial nerves Skin: Warm and dry, no rashes Musculoskeletal: Neck is supple nontender Extremities: Small abrasion noted to left knee, no effusion, tenderness to palpation throughout the knee without particular localization Constitutional: Initial Vital Signs Temperature (C) 36.4 C 03/23/17 11:43 Heart Rate 94 03/23/17 11:43 Respiratory Rate 16 03/23/17 11:43 Blood Pressure 131/80 H 03/23/17 11:43 O2 Sat (%) 96 03/23/17 11:43 O2 Delivery Mode Room Air Allergies/Adverse Reactions: No Known Allergies Allergy (Verified 03/23/17 11:42) Home Medications: Medication Instructions Recorded buPROPion SR [Wellbutrin 150mg SR 150 mg PO BID 12/16/15 (*)] Medical Decision Making ED Course/Re-evaluation: The patient presents to the ED with complaints of left knee pain following a mechanical fall. The patient is noted to be neurovascularly intact. I ordered an x-ray of her left knee. Prior to receiving the x-ray, the patient decided she did not want further care and left the department. She was observed to ambulate with a steady gait on her left leg. She did not appear impaired or dangerous. She left the emergency department without discharge instructions. Differential Diagnosis: Differential diagnosis considered includes fracture, sprain, dislocation Departure - Departure Disposition: Home, Routine, Self-Care Clinical Impression: Sprain, knee Condition: Good Instructions: Knee Sprain (ED) Additional Instructions: 1. Take Ibuprofen or Motrin 600 mg by mouth three times a day. 2. Please follow up with [facility] as needed. 3. Please follow up with the orthopedic surgeon you have been referred to for any persistent pain or swelling past 3-5 days. Referrals: Jami Nielsen MD [Medical Doctor] - As per Instructions
[2017-03-23 11:47] VITALS: BP 131/80; PULSE 94; RESP 16; TEMP 97.5; O2SAT 96
== END 2017-03-23 11:59 | disposition home or self-care (01) ==
LOC: EDUNIT#
DX: S83.92XA Sprain of unspecified site of left knee, initial encounter (principal); Z87.891 Personal history of nicotine dependence; W18.39XA Other fall on same level, initial encounter

== ENCOUNTER 2017-08-03 14:05 | Emergency (ER) | payer MEDICAID ==
--- NOTE | 2017-08-03 14:11 | EDPHY ---
H & P Time Seen by Provider: 08/03/17 14:06 HPI/ROS: CHIEF COMPLAINT: Intoxication HISTORY OF PRESENT ILLNESS: Patient is a 61-year-old homeless alcoholic female who was bring taken to the alcohol recovery Center by police when she "went unresponsive" in the back of the car. Here she is awake and alert and talking and looking around. She is however uncooperative and will close her eyes and not respond when we tried to take her temperature and vitals etc. She only tells me to leave her alone. REVIEW OF SYSTEMS: Unable to obtain due to intoxication EXAM: GENERAL: Disheveled HEAD: Atraumatic, normocephalic. EYES: Pupils equal round and reactive to light, extraocular movements intact, sclera anicteric, conjunctiva are normal. ENT: TMs normal, nares patent, oropharynx clear without exudates. Moist mucous membranes. NECK: Normal range of motion, supple without lymphadenopathy or JVD. LUNGS: Breath sounds clear to auscultation bilaterally and equal. No wheezes rales or rhonchi. HEART: Regular rate and rhythm without murmurs, rubs or gallops. ABDOMEN: Soft, nontender, normoactive bowel sounds. No guarding, no rebound. No masses appreciated. BACK: No CVA tenderness, no spinal tenderness, step-offs or deformities EXTREMITIES: Normal range of motion, no pitting or edema. No clubbing or cyanosis. NEUROLOGICAL: Cranial nerves II through XII grossly intact. Normal speech, normal gait. 5/5 strength, normal movement in all extremities, normal sensation PSYCH: Uncooperative SKIN: Warm, dry, normal turgor, no visible rashes or lesions. Source: Patient, EMS Exam Limitations: Intoxication - Personal History Tetanus Vaccine Date: 2012 - Medical/Surgical History Hx Asthma: No Hx Chronic Respiratory Disease: No Hx Diabetes: No Hx Cardiac Disease: No Hx Renal Disease: No Hx Cirrhosis: No Hx Alcoholism: Yes Hx HIV/AIDS: No Hx Splenectomy or Spleen Trauma: No Other PMH: PCP [facility]. Fibromyalgia, depression, Chronic pain, Tubal ligation, alcoholism - Social History Smoking Status: Former smoker Constitutional: Initial Vital Signs Temperature (C) 36.4 C 08/03/17 14:09 Heart Rate 89 08/03/17 14:09 Respiratory Rate 16 08/03/17 14:09 Blood Pressure 130/77 H 08/03/17 14:09 O2 Sat (%) 92 08/03/17 14:09 O2 Delivery Mode Room Air Allergies/Adverse Reactions: No Known Allergies Allergy (Verified 08/03/17 14:08) Home Medications: Medication Instructions Recorded buPROPion SR [Wellbutrin 150mg SR 150 mg PO BID 12/16/15 (*)] Medical Decision Making ED Course/Re-evaluation: 4:09 p.m. the patient is ambulating. Police are here to take her to the arc. She states that she feels much better and declines further workup, treatment or observation. Differential Diagnosis: Partial list of the Differential diagnosis considered include but were not limited to; intoxication, head injury and although unlikely based on the history and physical exam, I also considered fever, infection. Departure - Departure Disposition: Law Enforcement/Court/Fdc Clinical Impression: Alcoholic intoxication Qualifiers: Complication of substance-induced condition: uncomplicated Qualified Code(s): F10.920 - Alcohol use, unspecified with intoxication, uncomplicated Condition: Fair Instructions: Alcohol Intoxication (ED) Referrals: Patient,NotPresent [Primary Care Provider] - As per Instructions
[2017-08-03 16:18] VITALS: BP 159/99
== END 2017-08-03 16:15 ==
LOC: EDUNIT#
DX: F10.920 Alcohol use, unspecified with intoxication, uncomplicated (principal); Z87.891 Personal history of nicotine dependence

== ENCOUNTER 2018-01-04 19:18 | Emergency (ER) | payer MEDICAID ==
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
[2018-01-04] MEDS ORDERED: CYCLOBENZAPRINE 10 MG TAB PO ONE (20:01)
[2018-01-04] MEDS ORDERED: CYCLOBENZAPRINE 10MG PREPACK#3 BTL TAKEHOME ONE (20:20)
[2018-01-04 20:52] VITALS: BP 149/76
== END 2018-01-04 20:52 | disposition home or self-care (01) ==
LOC: EDUNIT#
DX: S46.911A Strain of unspecified muscle, fascia and tendon at shoulder and upper arm level, right arm, initial encounter (principal); V68.1XXA Passenger in heavy transport vehicle injured in noncollision transport accident in nontraffic accident, initial encounter

== ENCOUNTER 2018-01-28 22:05 | Emergency (ER) | payer MEDICAID ==
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
[2018-01-28] MEDS ORDERED: HALOPERIDOL LACT 5 MG/ML INJ IVP ONE (22:23)
[2018-01-28] MEDS ORDERED: HALOPERIDOL LACT 5 MG/ML INJ ONE (22:24)
[2018-01-28 22:26] LABS: PLATELET COUNT 311 10^3/uL (150-400)
[2018-01-29 12:50] VITALS: BP 138/78
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
--- NOTE | 2018-01-29 13:05 | ASMTTCLDSP ---
TLC Discharge Disposition Disposition: Answers: Discharge If Answers: Yes DISCHARGED: Patient/family given suicide hotline info & SAMHSA brochure? Disposition Notes: Notes: Pt will follow up with her AA sponsor and attend an AA meeting today. Pt was offerred numbers to [facility] crisis but she stated she already has that information. Discharge Concerns/Recommendations: Notes: In consultation with [facility] ED physician, Donaldo Walsh MD, and on-call psychiatrist, Quinton Hay MD, both concurred that pt does not appear to meet 27-65 criteria requiring psychiatric hospitalization as pt does not appear to be an imminent risk of harm to self/others/gravely disabled due to a mental illness condition. Date Signed: 01/29/2018 01:05 PM Electronically Signed By:Destini Hoyos
== END 2018-01-29 12:52 | disposition home or self-care (01) ==
LOC: EDUNIT#
PROC: GZ11ZZZ Psychological Tests, Personality and Behavioral (ICD-10-PCS; principal; 2018-01-28)
DX: F10.920 Alcohol use, unspecified with intoxication, uncomplicated (principal)
CPT/HCPCS: 80305; 96374; G0480; J1630

== ENCOUNTER 2018-04-28 14:29 | Emergency (ER) | payer MEDICAID, OTHER ==
--- NOTE | 2018-04-28 14:35 | EDPHY ---
H & P Time Seen by Provider: 04/28/18 14:33 HPI/ROS: Chief complaint. Alcohol intoxication, combative HPI. 8-year-old female history of alcoholism here by EMS. Apparent call to EMS for intoxicated person. Patient was combative for EMS. She was given Haldol 5 mg IV. She is now calm and sleeping. Upon awakening I took further history. She has no complaints to me currently . She tells me she has been drinking alcohol today. She tells me she is not sick. No chest pain or shortness of breath. No abdominal pain. No fever. ROS 10 systems were reviewed and negative with the exception of the elements mentioned in the history of present illness Past Medical/Surgical History: Fibromyalgia, depression, chronic pain, tubal ligation, alcoholism Social History: Single, nonsmoker, alcohol today Smoking Status: Former smoker Physical Exam: General Appearance: Initially lethargic and then alert and oriented. Stable vital signs Eyes: Pupils equal and round no pallor or injection. ENT, Mouth: Mucous membranes are moist. Respiratory: There are no retractions, lungs are clear to auscultation. Cardiovascular: Regular rate and rhythm. Gastrointestinal: Abdomen is soft and nontender, no masses, bowel sounds normal. Neurological: Awake and alert, sensory and motor exams grossly normal. Skin: Warm and dry, no rashes. Musculoskeletal: Neck is supple nontender. Extremities symmetrical, full range of motion. Psychiatric: Patient is oriented X 3, there is no agitation. Constitutional: Initial Vital Signs Temperature (C) 36.3 C 04/28/18 14:35 Heart Rate 77 04/28/18 14:35 Respiratory Rate 16 04/28/18 14:35 Blood Pressure 109/68 04/28/18 14:35 O2 Sat (%) 94 04/28/18 14:35 O2 Delivery Mode Room Air Allergies/Adverse Reactions: No Known Allergies Allergy (Verified 04/28/18 14:35) Home Medications: Medication Instructions Recorded buPROPion SR [Wellbutrin 150mg SR 150 mg PO BID 12/16/15 (*)] Cyclobenzaprine [Flexeril 10 MG 10 mg PO TID PRN #15 tab 01/04/18 (*)] Gabapentin 01/04/18 Lidocaine [Lidoderm] 1 each TP Q12 PRN #6 adh..patch 01/04/18 Medical Decision Making Procedures: IV normal saline ED Course/Re-evaluation: At 3:50 p.m. Patient is ambulatory to the bathroom Patient and I discussed laboratory evaluation, treatment plan including criteria for return importance of follow-up further evaluation. She expresses understanding and agreement Differential Diagnosis: This appears to be uncomplicated alcohol intoxication. She was combative prior to arrival for EMS and received Haldol IV. She is no longer combative. She is oriented and ambulatory. She continues to have stable vital signs. She will be sent to the [facility] Laboratory Results: Laboratory Results 04/28/18 14:45 04/28/18 14:45 04/28/18 04/28/18 14:45 14:45 WBC 5.55 10^3/uL 10^3/uL (3.80-9.50) RBC 5.01 10^6/uL 10^6/uL (4.18-5.33) Hgb 14.5 g/dL g/dL (12.6-16.3) Hct 43.0 % % (38.0-47.0) MCV 85.8 fL fL (81.5-99.8) MCH 28.9 pg pg (27.9-34.1) MCHC 33.7 g/dL g/dL (32.4-36.7) RDW 13.3 % % (11.5-15.2) Plt Count 335 10^3/uL 10^3/uL (150-400) MPV 9.1 fL fL (8.7-11.7) Neut % (Auto) 51.6 % % (39.3-74.2) Lymph % (Auto) 42.0 % % (15.0-45.0) [place] % (Auto) 3.4 % L % (4.5-13.0) Eos % (Auto) 2.0 % % (0.6-7.6) Baso % (Auto) 0.5 % % (0.3-1.7) Nucleat RBC Rel Count 0.0 % % (0.0-0.2) Absolute Neuts (auto) 2.86 10^3/uL 10^3/uL (1.70-6.50) Absolute Lymphs (auto) 2.33 10^3/uL 10^3/uL (1.00-3.00) Absolute Monos (auto) 0.19 10^3/uL L 10^3/uL (0.30-0.80) Absolute Eos (auto) 0.11 10^3/uL 10^3/uL (0.03-0.40) Absolute Basos (auto) 0.03 10^3/uL 10^3/uL (0.02-0.10) Absolute Nucleated RBC 0.00 10^3/uL 10^3/uL (0-0.01) Immature Gran % 0.5 % % (0.0-1.1) Immature Gran # 0.03 10^3/uL 10^3/uL (0.00-0.10) Sodium 143 mEq/L mEq/L (135-145) Potassium 4.1 mEq/L mEq/L (3.5-5.2) Chloride 114 mEq/L H mEq/L (97-110) Carbon Dioxide 16 mEq/l L mEq/l (22-31) Anion Gap 13 mEq/L mEq/L (6-14) BUN 21 mg/dL mg/dL (7-23) Creatinine 0.8 mg/dL mg/dL (0.6-1.0) Estimated GFR > 60 Glucose 84 mg/dL mg/dL (70-100) Calcium 8.9 mg/dL mg/dL (8.5-10.4) Ethyl Alcohol 354 mg/dL H mg/dL (0-10) Departure - Departure Disposition: Home, Routine, Self-Care Clinical Impression: Altered mental status Qualifiers: Altered mental status type: transient alteration of awareness Qualified Code(s) : R40.4 - Transient alteration of awareness Alcohol intoxication Qualifiers: Complication of substance-induced condition: uncomplicated Qualified Code(s): F10.920 - Alcohol use, unspecified with intoxication, uncomplicated Condition: Good Instructions: Alcohol Intoxication (ED) Additional Instructions: No further alcohol today. Return for worsening symptoms. Librium 1 pill every 4-6 hours as needed for tremulousness Re-evaluation by regular physician in 2 days without fail Referrals: Patient,NotPresent [Unknown] - As per Instructions [facility] [Outside[facility] - 1-2 days without fail
[2018-04-28 15:43] LABS: PLATELET COUNT 335 10^3/uL (150-400)
[2018-04-28] MEDS ORDERED: CHLORDIAZEPOXIDE 25MG PREPK#6 BTL TAKEHOME ONE (16:20)
[2018-04-28 16:26] VITALS: BP 93/54
== END 2018-04-28 16:41 | disposition home or self-care (01) ==
LOC: EDUNIT#
DX: F10.920 Alcohol use, unspecified with intoxication, uncomplicated (principal); Z87.891 Personal history of nicotine dependence
CPT/HCPCS: G0480

== ENCOUNTER 2018-07-26 13:36 | Emergency (ER) | payer OTHER ==
--- NOTE | 2018-07-26 14:21 | EDPHY ---
H & P Time Seen by Provider: 07/26/18 14:01 HPI/ROS: HPI Head injury. 62-year-old female by private vehicle with her friend. This patient reports that on Monday she was at work. She was leaning down underneath a metal utility box. She stood up briskly and struck her right upper forehead on this box. She reports having a brief loss of consciousness. She was sent to the emergency department from the [facility] urgent care where she was evaluated for follow-up. At urgent care she was complaining of some dull frontal headache that has been ongoing, some nausea, some mild confusion, malaise and mild word finding difficulty. She has no neck pain. No loss of sensation or weakness in her extremities. No changes in vision. She is not on anti coagulation or antiplatelet agents. ROS: Constitutional: No fever, no chills. As above. Eyes: No discharge. No changes in vision. ENT: No sore throat. No nasal congestion or rhinorrhea. Respiratory: No cough. No shortness of breath. Cardiac: No chest pain, no palpitations. Gastrointestinal: No abdominal pain, no vomiting, no diarrhea. Genitourinary: No hematuria. No dysuria or increased frequency with urination. Musculoskeletal: No back pain. No neck pain. No myalgias or arthralgias. Skin: No rashes. Neurological: As above. No focal weakness or altered sensation. Past medical history: Fibromyalgia, depression, chronic pain, tubal ligation, alcohol abuse. Social history: As above. Nonsmoker. Here with her friend. Physical Exam: General Appearance: Alert, no distress. This patient is responding to questions appropriately and in full sentences. This patient appears well- hydrated and well-nourished. Head: Normocephalic atraumatic except for a subtle right-sided upper forehead contusion. No bony step-off or deformity noted on palpation of this area. No crepitus. Face: Facial bones are stable on palpation. Eyes: Pupils equal and round and reactive to light, mild photophobia, no nystagmus, no pallor or injection. No lid erythema or edema. ENT, Mouth: Mucous membranes moist. Dentition is intact. No malocclusion of the jaw. No tongue lacerations or abrasions. Pharynx is clear. The bilateral nasal canals are clear. No septal hematoma. Respiratory: There are no retractions, lungs are clear to auscultation with good air movement bilaterally. Chest wall is stable to AP and lateral palpation. Cardiovascular: Regular rate and rhythm. No murmur. Gastrointestinal: Abdomen is soft and nontender, no masses, bowel sounds normal. Neurological: Motor sensory function is intact. Cranial nerves are normal. Cerebellar function intact. No expressive or receptive aphasia. No dysarthria. Skin: Warm and dry, no rashes. No lacerations, abrasions or contusions. Musculoskeletal: Neck is supple and nontender. No tenderness on palpation of the soft tissues of the lateral neck as well as the suboccipital areas. The trachea is midline. No midline cervical, thoracic, lumbar or sacral tenderness on palpation. No flank tenderness on palpation. Extremities are symmetrical, full range of motion. All joints in the bilateral upper and bilateral lower extremities range without pain or impingement. No tenderness on palpation of the long bones in the bilateral upper and bilateral lower extremities. Psychiatric: No agitation. No depression. Database: EKG: Imaging: CT head without contrast: Negative. Results were discussed with staff radiologist Dr. Akash Wilson. Procedures: Emergency department course: Triage vital signs reviewed. She is moderately hypertensive. Vital signs are otherwise normal. Patient presents with symptoms consistent with concussion syndrome. CVA unlikely. She will be sent for CT imaging of her head without contrast. She consents to workup. 2:55 p.m., the patient was re-evaluated, resting comfortably at this time. Repeat neurologic Assessment is nonfocal. Her gait is normal. I discussed results of her CT with her and her friend. She does feel comfortable going home and I feel she is safe for discharge with her friend. Follow-up and return to emergency department precautions were reviewed thoroughly with her and her friend. All of their questions were answered. She was discharged from the emergency department in good condition with her friend. Differential Diagnosis: The differential diagnosis on this patient includes but is not limited to concussion syndrome. Subdural hematoma, epidural hematoma, skull fracture, traumatic subarachnoid hemorrhage, CVA unlikely. This represents a partial list of diagnoses considered. These considerations are based on history, physical exam, past history, reassessment and diagnostic testing. Smoking Status: Former smoker Constitutional: Initial Vital Signs Temperature (C) 36.5 C 07/26/18 13:39 Heart Rate 66 07/26/18 13:39 Respiratory Rate 18 07/26/18 13:39 Blood Pressure 158/97 H 07/26/18 13:39 O2 Sat (%) 99 07/26/18 13:39 O2 Delivery Mode Room Air Allergies/Adverse Reactions: No Known Allergies Allergy (Verified 07/26/18 13:39) Home Medications: Medication Instructions Recorded buPROPion SR [Wellbutrin 150mg SR 150 mg PO BID 12/16/15 (*)] Cyclobenzaprine [Flexeril 10 MG 10 mg PO TID PRN #15 tab 01/04/18 (*)] Gabapentin 01/04/18 Lidocaine [Lidoderm] 1 each TP Q12 PRN #6 adh..patch 01/04/18 Medical Decision Making - Diagnostics Imaging Results: Imaging Impressions Head CT 07/26/18 14:08 Impression: 1. Normal CT brain without contrast. 2. No epidural or subdural hematoma. 3. No sinusitis. Findings and recommendations discussed with Emergency Department physician, Dr. Lila Cruz at 1445 hours on July 26, 2018. Final report concurs with initial preliminary interpretation. Departure - Departure Disposition: Home, Routine, Self-Care Clinical Impression: Head injury Condition: Good Instructions: Concussion (ED), Head Injury (ED) Additional Instructions: Read and follow provided instructions. Follow-up with your primary care physician in 2 days for re-evaluation as discussed. Take your medication as prescribed. Return to the emergency department for worsening symptoms, worsening headache, nausea and vomiting, worsening confusion or other serious concerns. Referrals: Sydni Pierson DO [Primary Care Provider] - As per Instructions
[2018-07-26 15:06] VITALS: BP 150/98
== END 2018-07-26 15:06 | disposition home or self-care (01) ==
DX: S06.9X9A Unspecified intracranial injury with loss of consciousness of unspecified duration, initial encounter (principal); W22.8XXA Striking against or struck by other objects, initial encounter; Y99.0 Civilian activity done for income or pay